=== PATIENT | male | born 1995 | race Caucasian/White ===

== ENCOUNTER 2017-10-07 11:50 | Emergency (ER) | payer SELFPAY ==
[2017-10-07 12:02] VITALS: BP 144/90
--- NOTE | 2017-10-07 12:15 | UC ---
Lower Extremity/Ankle HPI - HPI Summary HPI Summary: 21 y/o male presents to the urgent care c/o left foot pain s/p injury w/ a 100lb steel container he dropped on his foot last Tuesday10/05/2017 at 1230pm. .He is able to bear weight and walk w/ limping, but pain has worsen w/ time. He has mild swelling and bruising on top of his left foot. Pain is 7/10 today and he has taken Tylenol PO to alleviate symptoms. Pt is allergic to Ibuprofen PO. Pt denies fever, SOB, chest pain, calf pain or ankle pain, abdominal pain, N /V/D. - History of Current Complaint Chief Complaint: UCLowerExtremity Stated Complaint: ANKLE INJURY Time Seen by Provider: 10/07/17 12:05 Hx Obtained From: Patient Onset/Duration: Gradual Onset, Lasting Days - 3 days, Still Present, Worse Since - yesterday Severity Initially: Moderate Severity Currently: Moderate Pain Intensity: 7 Pain Scale Used: 0-10 Numeric Aggravating Factor(s): Ambulation Alleviating Factor(s): Rest, OTC Meds Able to Bear Weight: Yes - Risk Factors Gout Risk Factors: Negative DVT Risk Factors: Negative Septic Arthritis Risk Factor: Negative - Allergies/Home Medications Allergies/Adverse Reactions: Allergies Allergy/AdvReac Type Severity Reaction Status Date / Time ibuprofen Allergy Intermediate Hives Verified 10/07/17 12:02 azithromycin Allergy Unknown Verified 10/07/17 12:02 [From Zithromax Z-Aristides] Reaction Details PMH/Surg Hx/FS Hx/Imm Hx Previously Healthy: Yes - pt denies PMHX - Surgical History Surgical History: None - Family History Known Family History: Positive: None - Pt dneis FMHX - Social History Occupation: Employed Full-time Lives: With Family Alcohol Use: Occasionally Substance Use Type: None Smoking Status (MU): Light Every Day Tobacco Smoker - Immunization History Most Recent Tetanus Shot: UTD Review of Systems Constitutional: Negative Skin: Bruising - dorsal side of left foot w/ mild swelling and bruising s/p injury Eyes: Negative ENT: Negative Respiratory: Negative Cardiovascular: Negative Gastrointestinal: Negative Genitourinary: Negative Motor: Negative Neurovascular: Negative Musculoskeletal: Decreased ROM - left foot, Other: - left foot pain Neurological: Negative Psychological: Negative Is Patient Immunocompromised?: No All Other Systems Reviewed And Are Negative: Yes Physical Exam - Summary Physical Exam Summary: Vital Signs Reviewed: Yes General : well developed, well nourished male adolescent w/o any apparent distress Eyes: Positive: Conjunctiva Clear - PERRLA, EOMI ENT: Positive: Normal ENT inspection, Hearing grossly normal, Pharynx normal, TMs normal Neck: Positive: Supple, Nontender, No Lymphadenopathy Respiratory: Positive: Chest non-tender, Lungs clear, Normal breath sounds, No respiratory distress Cardiovascular: Positive: RRR, No Murmur, Pulses Normal Abdomen Description: Positive: Nontender, No Organomegaly, Soft. Negative: CVA Tenderness (R), CVA Tenderness (L) Bowel Sounds: Positive: Present Musculoskeletal: Positive: Strength Intact, ROM Intact, No Edema, LF Foot/Toes : Pt is able to bear weight but ambulate with mild limping.LF foot mild ecchymosis, and bruising over the dorsal side of the left foot over the navicular bone, no break in skin integrity. The L foot is without obvious asymmetry or deformity when compared to the R foot. No bony step-off, No tenderness to palpation over toes, point tenderness over the dorsal side of mid foot. no tenderness of hindfoot, Decrease plantar/dorsiflexion, inversion/ eversion due to pain. Distal motor and neurovascular status are intact. Neurological Exam: Normal Psychological Exam: Normal Skin Exam: Normal Triage Information Reviewed: Yes Vital Signs: Initial Vital Signs Temp 98.8 F 10/07/17 11:59 Pulse 78 10/07/17 11:59 Resp 18 10/07/17 11:59 BP 144/90 10/07/17 11:59 Pulse Ox 98 10/07/17 11:59 Lower Extremity Course/Dx - Course Course Of Treatment: 21 y/o male presents to the urgent care c/o left foot pain s/p injury w/ a 100lb steel container he dropped on his foot last Tuesday at 1230pm. .He is able to bear weight and walk w/ limping, but pain has worsen w/ time. He has mild swelling and bruising on top of his left foot. Pain is 7/10 today and he has taken Tylenol PO to alleviate symptoms. Pt is allergic to Ibuprofen PO. Pt denies fever, SOB, chest pain, calf pain or ankle pain, abdominal pain, N/V/D.Hx obtained. LF foot X-ray ordered, Impression: There was no fracture, dislocation, positive soft tissue swelling over the dorsum of the ankle and foot. Pt's foot immobilized with tera-bandage and given a post-op shoe to avoid flexion and given crutches to avoid weight bearing until sympotm simprove. PT Advised RICE, and to continue taking Tylenol PO for pain, If not improvement of symptoms to f/u with Orthopedic DR Rodríguez referral for further evaluation and treatment in 1 week. Pt's BP is elevated today advised to decrease salt in diet, monitor BP and f/u with PCP for further management. Pt understood and agreed with D/C instructions. Pt left the lcinic ambulating w/ the help of crutches. - Differential Dx/Diagnosis Differential Diagnosis/HQI/PQRI: Contusion, Dislocation, Fracture (Closed), Sprain, Strain, Tendonitis Provider Diagnoses: 1- LF foot pain s/p injury. 2- elevated BP w/o Hx of HTN Discharge - Sign-Out/Discharge Documenting (check all that apply): Discharge/Admit/Transfer - D/C home - Discharge Plan Condition: Stable Disposition: HOME Prescriptions: Acetaminophen TAB* [Tylenol TAB*] 650 mg PO Q4H PRN #30 tab PRN Reason: Pain Patient Education Materials: Foot Sprain (ED), Low-Sodium Diet (ED) Referrals: [facility] [place] [facility] [Outside] - 1 Week Chuck Rodríguez MD [Medical Doctor] - Additional Instructions: 1-Please continue taking Tylenol PO as directed to alleviate pain and swelling. 2-Please apply ice, keep your foot immobilized with the Tera bandage and post-op shoe. Use the crutches to avoid weight bearing. Avoid strenuous exercise or standing for long periods of time 3- Please f/u with your PCP in or Oropedic Dr Rodríguez in 1 week if not improvement of symptoms for further evaluation and treatment. 4- Your BP is elevated today. please decrease salt in your diet, monitor BP and if it continues to be elevated please f/u with your PCP for further management - Billing Disposition and Condition Condition: STABLE Disposition: HOME
--- NOTE | 2017-10-07 12:58 | RAD ---
IMPRESSION:: LEFT foot pain and swelling following crush injury 3 days ago. Comparison: No relevant prior exams available on the [facility] [place] PACS for comparison. Technique: 3 views LEFT foot REPORT AND IMPRESSION: Negative for fracture or malalignment. Soft tissue swelling over the dorsum of the ankle and foot. No conspicuous foreign body evident.
== END 2017-10-07 13:25 | disposition home or self-care (01) ==
LOC: UCEAST 11:50
DX: M79.672 Pain in left foot (principal); R03.0 Elevated blood-pressure reading, without diagnosis of hypertension; W20.8XXA Other cause of strike by thrown, projected or falling object, initial encounter; Y92.9 Unspecified place or not applicable; Z72.0 Tobacco use
CPT/HCPCS: 99203; G0463

== ENCOUNTER 2018-09-27 21:39 | Emergency (ER) | payer SELFPAY ==
[2018-09-27] MEDS ORDERED: Tetan/Diph/Pertus SYR(Tdap)* 0.5 ML SYR(BOOSTRIX) use SYR IM ONE (21:52)
[2018-09-27] MEDS ORDERED: Benzoin Compound STICK TOPICAL ONE (21:52)
[2018-09-27 21:54] VITALS: BP 143/96
--- NOTE | 2018-09-27 22:23 | UC ---
Laceration HPI - HPI Summary HPI Summary: 22-year-old male presents with laceration to right hand. States prior to arrival he accidentally cut his hand at work while using on a sharp metal edge while using lathe. Bleeding was controlled prior to arrival with direct pressure. States he has full use of his hand and fingers. Denies numbness or tingling. Tetanus status is unknown. - History Of Current Complaint Chief Complaint: UCLaceration Stated Complaint: HAND LACERATION Time Seen by Provider: 09/27/18 21:51 Hx Obtained From: Patient Pain Intensity: 4 - Allergies/Home Medications Allergies/Adverse Reactions: Allergies Allergy/AdvReac Type Severity Reaction Status Date / Time ibuprofen Allergy Intermediate Hives Verified 09/27/18 21:54 azithromycin Allergy Unknown Verified 09/27/18 21:54 [From Zithromax Z-Aristides] Reaction Details PMH/Surg Hx/FS Hx/Imm Hx Previously Healthy: Yes - Denies significant PMH - Surgical History Surgical History: None - Family History Known Family History: Positive: None - Pt dneis FMHX - Social History Occupation: Employed Full-time Lives: With Family Alcohol Use: Occasionally Substance Use Type: None Smoking Status (MU): Light Every Day Tobacco Smoker - Immunization History Most Recent Tetanus Shot: UTD Review of Systems All Other Systems Reviewed And Are Negative: Yes Constitutional: Negative: Fever, Chills Skin: Positive: Other - See HPI Respiratory: Positive: Negative Cardiovascular: Positive: Negative Gastrointestinal: Positive: Negative Genitourinary: Positive: Negative Motor: Negative: Weakness Neurovascular: Negative: Decreased Sensation Musculoskeletal: Negative: Decreased ROM Neurological: Positive: Negative Is Patient Immunocompromised?: No Physical Exam - Summary Physical Exam Summary: GENERAL APPEARANCE: Well developed, well nourished, alert and cooperative, and appears to be in no acute distress. CARDIAC: Normal S1 and S2. No S3, S4 or murmurs. Rhythm is regular. There is no peripheral edema, cyanosis or pallor. Extremities are warm and well perfused. Capillary refill is less than 2 seconds. Peripheral pulses intact. LUNGS: Clear to auscultation without rales, rhonchi, wheezing or diminished breath sounds. ABDOMEN: Positive bowel sounds. Soft, nondistended, nontender. No guarding or rebound. No masses or hepatosplenomegally. MUSKULOSKELETAL: ROM intact to all fingers of the right hand. Sensation and circulation intact. SKIN: Superficial 1 cm jagged laceration to the posterior right hand. Bleeding controlled. No foreign body noted. Triage Information Reviewed: Yes Vital Signs: Initial Vital Signs Temp 98.9 F 09/27/18 21:49 Pulse 92 09/27/18 21:49 Resp 20 09/27/18 21:49 BP 143/96 09/27/18 21:49 Pulse Ox 98 09/27/18 21:49 Vital Signs Reviewed: Yes Laceration Repair - Laceration Repair 1 Description: Irregular Laceration Size After Repair: Length (cm) - 1.0 cm Modified For Repair: No Cleansing Completed Via Routine Prep: Yes Irrigation With Pressure Irrigation Device: Yes Closure Material: Skin Adhesive, SteriStrips Laceration Course/Dx - Course/Dx Course Of Treatment: 22-year-old male presents with laceration to right hand. States prior to arrival he accidentally cut his hand at work while using on a sharp metal edge while using lathe. Bleeding was controlled prior to arrival with direct pressure. States he has full use of his hand and fingers. Denies numbness or tingling. Tetanus status is unknown. Afebrile. Vital signs stable. Exam reveals superficial 1 cm jagged laceration to the posterior right hand. Bleeding controlled. No foreign body noted. ROM intact to all fingers of the right hand. Sensation and circulation intact. The wound was thoroughly irrigated by the RN using sterile saline prior to wound repair. The wound margins were brought into proper alignment and secured using three 1/8 inch Steri-Strips and further closed with skin adhesive. The wound was then covered with a clean gauze dressing. Tetanus was updated. Wound care, anticipatory guidance, and warning symptoms were reviewed with the patient. He is to return for any signs or symptoms of infection. Verbalizes understanding and agrees with plan of care. - Differential Dx - Laceration/Wound Differental Diagnoses: Laceration, Tendon Laceration - Diagnosis Provider Diagnosis: Laceration of right hand Discharge - Sign-Out/Discharge Documenting (check all that apply): Patient Departure All imaging exams completed and their final reports reviewed: No Studies - Discharge Plan Condition: Stable Disposition: HOME Patient Education Materials: Laceration (ED), Skin Adhesive Care (ED), Steristrips (ED) Referrals: No Primary Care Phys,NOPCP [Primary Care Provider] - Additional Instructions: Your laceration as repaired with a combination of skin adhesive and Steri- Strips. The adhesive will slowly wear off over the next several days. Keep the adhesive dry for the next 24 hours. After 24 hours you may shower and wash your hands as ususal. Do not apply any lotions or ointments to the adhesive as this may dissolve the adhesive and cause the wound to reopen. The Steri-Strips will slowly peel up from the ends over the next few days. You may trim the ends as needed but do not pull off or you may reopen the wound. Keep the wound covered with a dressing. Change this at least once a day or anytime the dressing becomes wet or soiled. Take acetaminophen (Tylenol) or ibuprofen (Advil, Motrin) according to directions as needed for pain. Watch for signs of infection including fever greater than 100.5 F, severe pain not managed with with pain medicine, redness that spreads, swelling of the finger, pus draining from the wound, or any worsening of symptoms. Seek immediate medical attention if any of these occur. - Billing Disposition and Condition Condition: STABLE Disposition: Home - Attestation Statements Provider Attestation: I was available for consult. Pt not seen by me.
== END 2018-09-27 22:25 | disposition home or self-care (01) ==
LOC: UCEAST 21:39
DX: S61.411A Laceration without foreign body of right hand, initial encounter (principal); W26.8XXA Contact with other sharp object(s), not elsewhere classified, initial encounter; Y92.9 Unspecified place or not applicable; Y99.0 Civilian activity done for income or pay; Z23 Encounter for immunization; Z88.6 Allergy status to analgesic agent; Z88.1 Allergy status to other antibiotic agents; F17.200 Nicotine dependence, unspecified, uncomplicated
CPT/HCPCS: 12001; 90715; 99201; G0463